=== PATIENT | female | born 1960 | race Caucasian/White ===

== ENCOUNTER 2024-02-12 19:49 | Emergency (ER) | payer OTHER, SELFPAY ==
[2024-02-12 19:50] VITALS: BP 151/75; PULSE 77; RESP 18; TEMP 35.9; O2SAT 97
--- NOTE | 2024-02-12 20:18 | ED.GENADULT ---
HPI - General Adult General Chief complaint: Skin/Abscess/Foreign Body Stated complaint: rash Time Seen by Provider: 02/12/24 20:01 History of Present Illness HPI narrative: The patient is a 63-year-old woman who got exposed to poison shayla while doing yard work on 02/01/2024 and 02/02/2024. She had covered her arms and legs. There was known poison shayla in the shrubs that were sprayed. She did not have any skin reaction until 5 days later, on 02/07/2024, when she started having itching and a rash on both forearms and both lower shins. She treated herself with Benadryl p.o.. She saw a primary care provider 2 days later in clinic on 02/09/2024 due to continued symptoms. She was diagnosed with poison shayla dermatitis and placed on Zyrtec prednisone for 2 weeks which she is continuing, and triamcinolone cream to the lesions. She has been doing this for the last 3 days but still has persistent rash and raised lesions. She is worried about cellulitis. No fevers or chills. No wheezing. No respiratory difficulties. No chest pain. Past medical history is notable for atrial fibrillation and pulmonary embolism on anticoagulation. Also with asthma on Symbicort Related Data Home Medications Medication Instructions Recorded Confirmed baclofen 20 mg tablet 20 mg PO DAILY 02/12/24 02/12/24 budesonide-formoterol HFA 80 2 puff inhalation Q12H 02/12/24 02/12/24 mcg-4.5 mcg/actuation aerosol inhaler (Symbicort) diltiazem HCl 120 mg tablet 120 mg PO DAILY 02/12/24 02/12/24 (Cardizem) rivaroxaban 20 mg tablet (Xarelto) 20 mg PO DAILY 02/12/24 02/12/24 Allergies Allergy/AdvReac Type Severity Reaction Status Date / Time Sulfa (Sulfonamide Allergy Hives Verified 02/12/24 20:05 Antibiotics) Review of Systems Review of Systems: All systems reviewed & are unremarkable except as noted in HPI and below Constitutional: Constitutional: Denies chills, Denies excessive sweating, Denies fatigue, Denies fever(s), Denies headache(s) and Denies weakness Eyes: Eyes: Denies change in vision and Denies photophobia ENT: Denies dysphagia, Denies dizziness, Denies headache(s), Denies lip swelling, Denies nasal congestion, Denies sore throat and Denies tongue swelling Cardiovascular: Cardiovascular: Denies chest pain, Denies syncope, Denies rapid heart rate and Denies dyspnea Respiratory: Respiratory: Denies cough, Denies dyspnea and Denies wheezing Gastrointestinal: Gastrointestinal: Denies abdominal pain, Denies constipation, Denies dysphagia, Denies diarrhea, Denies nausea and Denies vomiting Genitourinary: Genitourinary: Denies hematuria, Denies urinary frequency, Denies dysuria and Denies urinary urgency Musculoskeletal: Musculoskeletal: Denies back pain, Denies myalgias, Denies arthralgias, Denies joint swelling and Denies numbness Integumentary/Breasts: Skin/Breast: Reports pruritus, Reports erythema, Reports rash and Denies skin ulcer Neurologic: Denies confusion, Denies dizziness, Denies syncope, Denies headache(s), Denies focal weakness, Denies numbness and Denies weakness Psychiatric: Psychiatric: Denies anxiety and Denies confusion Endocrine: Endocrine: Denies excessive sweating and Denies fatigue Hematologic/Lymphatic: Hematologic/Lymphatic: Denies easy bleeding and Denies easy bruising Allergic/Immunologic: Allergic/Immunologic: Denies lip swelling, Denies tongue swelling and Denies wheezing Exam Const: General: healthy appearing, no acute distress, alert and well nourished Nutritional Appearance: well nourished Orientation/consciousness: patient oriented x3 Limitations: no limitations HENMT: Head: normal to inspection Ears: external ears normal Face/Nose/Sinus: normal facial exam Face and sinus: normal facial exam Mouth: Yes moist mucous membranes Throat: posterior oropharynx normal Eyes: Conjunctivae: conjunctivae normal Pupils: Equal, round and reactive pupils present EOM: EOMs intact bilaterally Neck:
== END 2024-02-12 20:36 | disposition home or self-care (01) ==
LOC: CHSED 20:34
PROVIDERS: Emergency Provider Emergency Medicine
DX: L23.7 Allergic contact dermatitis due to plants, except food (principal); I48.91 Unspecified atrial fibrillation; I26.99 Other pulmonary embolism without acute cor pulmonale; Z79.01 Long term (current) use of anticoagulants; Z79.899 Other long term (current) drug therapy
CPT/HCPCS: 99281